=== PATIENT | male | born 1960 | race Caucasian/White ===

== ENCOUNTER 2018-10-15 23:54 | Emergency (ER) | payer SELFPAY ==
[2018-10-16] MEDS ORDERED: methylPREDNIS SUCC 125 MG/2ML IVP ONE
[2018-10-16] MEDS ORDERED: NITROGLYCERIN OINT 1 GM PKT TP ONE (00:05)
[2018-10-16] MEDS ORDERED: ONDANSETRON 4 MG/2 ML VIAL IVP ONE ×2 (00:05→00:40)
[2018-10-16] MEDS ORDERED: ASPIRIN 81 MG CHEW PO ONE (00:05)
--- NOTE | 2018-10-16 00:10 | ER Report ---
History and Physical Time Seen By MD: 23:57 Hx. of Stated Complaint: IN BED AT 10PM, WOKE UP TO EXTREME CHEST PAIN AND DIFF BREATHING "DOESN'T FEEL RIGHT" HPI/ROS CHIEF COMPLAINT: Difficulty breathing HISTORY OF PRESENT ILLNESS: 57-year-old male presents to the ER with shortness of breath, difficulty breathing since 10 PM. Patient's been having cold symptoms and a cough for several days. He does have a history of COPD diagnosed back in [place]. He is new to [facility] over the last several weeks. Patient notes some chest tightness. He's having grunting respirations and pain with breathing. She denies cardiac history. Patient denies leg swelling. Patient denies GERD symptoms. REVIEW OF SYSTEMS: Respiratory: As above Cardiovascular: As above Gastrointestinal: No vomiting, no abdominal pain. Musculoskeletal: No back pain. Allergies: Coded Allergies: No Known Drug Allergies (Unverified , 10/16/18) Home Meds Active Scripts Albuterol Sulfate 90 Mcg/Act (PROAIR HFA 90 MCG/ACT) 8.5 Gm Hfa.aer.ad, 2 PUFF IH Q4-6H PRN for difficulty breathing, #1 INHALER 4 Refills Prov:TAMY MOMIN DO 10/16/18 Amlodipine Besylate (AMLODIPINE BESYLATE) 5 Mg Tablet, 2 TAB PO QDAY, #30 TAB 8 Refills Prov:TAMY MOMIN DO 10/16/18 Amlodipine Besylate (AMLODIPINE BESYLATE) 5 Mg Tablet, 1 TAB PO QDAY for Blood Pressure, #30 TAB Prov:TAMY MOMIN DO 10/16/18 Prednisone 10 Mg Tab (PREDNISONE 10 MG TAB) 10 Mg Tablet, 10 MG PO QDAY for reduce lung inflammation, #9 TAB 2 by mouth daily for 3 days then 1 by mouth daily for 3 days Prov:TAMY MOMIN DO 10/16/18 Past Medical/Surgical History COPD Constitutional Vital Sign - Last 24 Hours 10/15/18 10/15/18 10/15/18 10/16/18 23:54 23:57 23:58 00:00 Temp 97.6 Pulse ??? 80 Resp 30 B/P (MAP) 181/118 181/118 (139) 153/137 (142) Pulse Ox 94 O2 Delivery Room Air 10/16/18 10/16/18 10/16/18 10/16/18 00:05 00:05 00:09 00:10 Pulse 76 81 75 Resp 20 26 20 Pulse Ox 96 94 O2 Delivery Room Air 10/16/18 10/16/18 10/16/18 10/16/18 00:12 00:15 00:30 00:39 Pulse 77 Resp 18 B/P (MAP) 143/93 (110) 148/112 (124) 161/98 (119) Pulse Ox 94 10/16/18 10/16/18 10/16/18 10/16/18 00:45 00:45 00:54 01:00 Pulse 76 Resp 8 B/P (MAP) 143/95 (111) 150/90 (110) Pulse Ox 93 O2 Flow Rate 2.0 10/16/18 10/16/18 10/16/18 10/16/18 01:09 01:15 01:20 01:20 Pulse 76 77 73 Resp 8 17 15 B/P (MAP) 147/94 (111) Pulse Ox 93 94 10/16/18 10/16/18 10/16/18 10/16/18 01:20 01:23 01:30 01:35 Pulse 73 80 Resp 16 18 B/P (MAP) 135/82 (99) Pulse Ox 94 94 O2 Delivery Nasal Cannula O2 Flow Rate 2.0 10/16/18 10/16/18 10/16/18 10/16/18 01:37 01:42 01:45 01:57 Pulse 80 84 Resp 20 17 B/P (MAP) 135/88 (104) 139/85 (103) Pulse Ox 94 95 10/16/18 10/16/18 10/16/18 10/16/18 02:00 02:00 02:00 02:10 Pulse 77 76 Resp 16 16 B/P (MAP) 142/88 (106) Pulse Ox 96 O2 Delivery Nasal Cannula O2 Flow Rate 2.0 10/16/18 10/16/18 02:12 02:15 Pulse 79 Resp 20 B/P (MAP) 139/87 (104) Pulse Ox 94 Physical Exam Vital signs stable, grossly elevated blood pressure with systolic of 119. Pulse ox stable on room air, increased work of breathing noted, moderate distress, skin slightly pale but dry General Appearance: The patient is alert, has no immediate need for airway protection and no current signs of toxicity. Moderate respiratory distress HEENT: Pupils equal and round no injection. TMs normal, oropharynx without redn ess Respiratory: Chest is non tender, gross expiratory wheezing throughout lung villar Cardiac: regular rate and rhythm Gastrointestinal: Abdomen is soft and non tender, no masses, bowel sounds normal . Musculoskeletal: Neck: Neck is supple and non tender. Extremities have full range of motion and are non tender. No edema, no calf tenderness Skin: No rashes or lesions. DIFFERENTIAL DIAGNOSIS: After history and physical exam differential diagnosis was considered for shortness of breath including but not limited to pulmonary infectious process, COPD, asthma, pulmonary embolus and congestive heart failure. Medical Decision Making Data Points Result Diagram: 10/16/18 0000 10/16/18 0000 Laboratory Hematology Test 10/16/18 00:00 Red Blood Count 4.89 M/uL (4.00-5.60) Mean Corpuscular Volume 93.3 fL (80.0-96.0) Mean Corpuscular Hemoglobin 32.3 pg (26.0-33.0) Mean Corpuscular Hemoglobin Concent 34.6 g/dL (32.0-36.0) Red Cell Distribution Width 14.8 % (11.5-14.5) Mean Platelet Volume 9.1 fL (7.2-11.1) Neutrophils (%) (Auto) 59.0 % (39.4-72.5) Lymphocytes (%) (Auto) 31.1 % (17.6-49.6) Monocytes (%) (Auto) 7.7 % (4.1-12.4) Eosinophils (%) (Auto) 1.5 % (0.4-6.7) Basophils (%) (Auto) 0.7 % (0.3-1.4) Nucleated RBC Relative Count (auto) 0.1 /100WBC Neutrophils # (Auto) 5.9 K/uL (2.0-7.4) Lymphocytes # (Auto) 3.1 K/uL (1.3-3.6) Monocytes # (Auto) 0.8 K/uL (0.3-1.0) Eosinophils # (Auto) 0.2 K/uL (0.0-0.5) Basophils # (Auto) 0.1 K/uL (0.0-0.1) Nucleated RBC Absolute Count (auto) 0.01 K/uL D-Dimer Quantitative (PE/DVT) 0.34 ug/ml (0-0.50) Sodium Level 140 mmol/L (137-145) Potassium Level 3.2 mmol/L (3.5-5.0) Chloride Level 109 mmol/L (98-107) Carbon Dioxide Level 24 mmol/L (22-30) Blood Urea Nitrogen 15 mg/dl (9-21) Creatinine 1.10 mg/dl (0.66-1.25) Glomerular Filtration Rate Calc > 60.0 Random Glucose 99 mg/dl (75-110) Calcium Level 8.7 mg/dl (8.4-10.2) Total Bilirubin 0.6 mg/dl (0.2-1.3) Aspartate Amino Transf (AST/SGOT) 39 U/L (0-35) Alanine Aminotransferase (ALT/SGPT) 23 U/L (0-56) Alkaline Phosphatase 111 U/L (0-126) Troponin I < 0.012 ng/ml B-Type Natriuretic Peptide 61 pg/ml (0-100) Total Protein 7.0 g/dl (6.3-8.2) Albumin 4.1 g/dl (3.5-5.0) Amylase Level 41 U/L (0-110) Lipase 58 U/L (23-300) Chemistry Test 10/16/18 00:00 White Blood Count 10.0 k/uL (4.5-11.0) Red Blood Count 4.89 M/uL (4.00-5.60) Hemoglobin 15.8 g/dL (14.0-18.0) Hematocrit 45.6 % (42.0-52.0) Mean Corpuscular Volume 93.3 fL (80.0-96.0) Mean Corpuscular Hemoglobin 32.3 pg (26.0-33.0) Mean Corpuscular Hemoglobin Concent 34.6 g/dL (32.0-36.0) Red Cell Distribution Width 14.8 % (11.5-14.5) Platelet Count 272 K/uL (150-450) Mean Platelet Volume 9.1 fL (7.2-11.1) Neutrophils (%) (Auto) 59.0 % (39.4-72.5) Lymphocytes (%) (Auto) 31.1 % (17.6-49.6) Monocytes (%) (Auto) 7.7 % (4.1-12.4) Eosinophils (%) (Auto) 1.5 % (0.4-6.7) Basophils (%) (Auto) 0.7 % (0.3-1.4) Nucleated RBC Relative Count (auto) 0.1 /100WBC Neutrophils # (Auto) 5.9 K/uL (2.0-7.4) Lymphocytes # (Auto) 3.1 K/uL (1.3-3.6) Monocytes # (Auto) 0.8 K/uL (0.3-1.0) Eosinophils # (Auto) 0.2 K/uL (0.0-0.5) Basophils # (Auto) 0.1 K/uL (0.0-0.1) Nucleated RBC Absolute Count (auto) 0.01 K/uL D-Dimer Quantitative (PE/DVT) 0.34 ug/ml (0-0.50) Glomerular Filtration Rate Calc > 60.0 Calcium Level 8.7 mg/dl (8.4-10.2) Total Bilirubin 0.6 mg/dl (0.2-1.3) Aspartate Amino Transf (AST/SGOT) 39 U/L (0-35) Alanine Aminotransferase (ALT/SGPT) 23 U/L (0-56) Alkaline Phosphatase 111 U/L (0-126) Troponin I < 0.012 ng/ml B-Type Natriuretic Peptide 61 pg/ml (0-100) Total Protein 7.0 g/dl (6.3-8.2) Albumin 4.1 g/dl (3.5-5.0) Amylase Level 41 U/L (0-110) Lipase 58 U/L (23-300) Coagulation Test 10/16/18 00:00 D-Dimer Quantitative (PE/DVT) 0.34 ug/ml EKG/Imaging EKG Interpretation 12 lead EK Rhythm: normal sinus rhythm [place]: normal QRS: normal ST segments: normal, no evidence of ischemia or dysrhythmia, no old EKGs for comparison Imaging X-ray: Single view portable chest x-ray was obtained. I viewed the images myself on the PACS system. My interpretation of the images is: No infiltrate, no effusion, normal mediastinum, changes consistent with COPD. The radiologist interpretation had no clinically significant variation from this interpretation. ED Course/Re-evaluation Clinical Indication for ER IV: Hydration, IV Access ED Course Patient was admitted to an examination room. H&P was done. The differential diagnoses was considered. Patient with shortness of breath. His vital signs are stable but serious work of breathing is noted. He is using accessory muscles. He is not diaphoretic. His EKG is normal. Diagnostic studies are ordered. Patient's treated with series of DuoNeb's Solu-Medrol IV. His troponin and d-dimer and BNP all return normal. Patient's blood pressure is quite high. He is treated with nitroglycerin paste 1 inch. After he is stabilized. He is treated with Norvasc 5 mg by mouth. And the Nitropaste is removed. He is monitored for 45 minutes without exacerbation of his symptoms. He is discharged home with an albuterol inhaler. He's been using his Flovent inhaler as a rescue inhaler. Patient was placed on prednisone. He is given a prescription for Norvasc. Patient advised to follow-up with primary care. Upon returning home. Decision to Disposition Date: Oct 16, 2018 Decision to Disposition Time: 02:23 Depart Departure Latest Vital Signs Vital Signs Date Time Temp Pulse Resp B/P (MAP) Pulse Ox O2 Delivery O2 Flow Rate FiO2 10/16/18 02:15 139/87 (104) 10/16/18 02:12 79 20 94 10/16/18 02:00 Nasal Cannula 2.0 10/15/18 23:57 97.6 Impression: Primary Impression: COPD exacerbation Additional Impressions: Hypertension Back pain Chest pain Condition: Improved Disposition: HOME OR SELF-CARE New Scripts Albuterol Sulfate 90 Mcg/Act (PROAIR HFA 90 MCG/ACT) 8.5 Gm Hfa.aer.ad 2 PUFF IH Q4-6H PRN for difficulty breathing, #1 INHALER 4 Refills Prov: TAMY MOMIN DO 10/16/18 Amlodipine Besylate (AMLODIPINE BESYLATE) 5 Mg Tablet 2 TAB PO QDAY, #30 TAB 8 Refills Prov: TAMY MOMIN DO 10/16/18 Amlodipine Besylate (AMLODIPINE BESYLATE) 5 Mg Tablet 1 TAB PO QDAY for Blood Pressure, #30 TAB Prov: MERRILLTAMY Kaitlynn DO 10/16/18 Prednisone 10 Mg Tab (PREDNISONE 10 MG TAB) 10 Mg Tablet 10 MG PO QDAY for reduce lung inflammation, #9 TAB 2 by mouth daily for 3 days then 1 by mouth daily for 3 days Prov: TAMY MOMIN DO 10/16/18 Patient Instructions: COPD (Chronic Obstructive Pulmonary Disease) (ED), Hypertension (ED) Additional Instructions: Take prednisone until gone Continue amlodipine 5 mg per day for blood pressure control Follow-up with primary care. Upon returning home Problem Qualifiers Additional Impressions: Hypertension Hypertension type: essential hypertension Qualified Codes: I10 - Essential (primary) hypertension Back pain Back pain location: thoracic back pain Chronicity: acute Back pain laterality: unspecified Qualified Codes: M54.6 - Pain in thoracic spine Chest pain Chest pain type: unspecified Qualified Codes: R07.9 - Chest pain, unspecified TAMY MOMIN DO Oct 16, 2018 00:10
--- NOTE | 2018-10-16 00:19 | EKG ---
FACILITY: [facility] - [place] PATIENT NAME: SUSAN ACUÑA : [id number] MR: [id number] V: [id number] EXAM DATE: ORDERING PHYSICIAN: TAMY MOMIN TECHNOLOGIST: GABE Test Reason : DYSPNEA Blood Pressure : / mmHG Vent. Rate : 077 BPM Atrial Rate : 077 BPM P-R Int : 142 ms QRS Dur : 098 ms QT Int : 386 ms P-R-T Axes : 064 085 076 degrees QTc Int : 436 ms Normal sinus rhythm Normal ECG No previous ECGs available Confirmed by Epi Mednoza ([id number]) on 10/16/2018 7:55:43 AM Referred By: Confirmed By:Epi Dahl
[2018-10-16 00:22] LABS: PLATELET COUNT, AUTOMATED 272 K/uL (150-450)
--- NOTE | 2018-10-16 00:32 | RADIOLOGY IMAGING REPORT ---
FACILITY: [facility] - [place] PATIENT NAME: Layo Keys : 1960 MR: [id number] V: [id number] EXAM DATE: ORDERING PHYSICIAN: TAMY MOMIN TECHNOLOGIST: Location: [facility] - [place] Patient: Layo Keys : 1960 Visit/Account:[id number] Date of Sevice: 10/15/2018 AP CHEST 10/15/2018 11:57 PM. INDICATION: Respiratory distress. COMPARISON: None. FINDINGS: Lungs are well-expanded. There is no consolidation. No pleural effusion or pneumothorax. Heart size i s normal. IMPRESSION: No acute abnormality. Report Dictated By: Casey West MD at 10/16/2018 12:27 AM Report E-Signed By: Casey West MD at 10/16/2018 12:28 AM WSN:[id number]
[2018-10-16] MEDS ORDERED: fentaNYL CITR 100 MCG/2 ML AMP IVP ONE (00:45)
[2018-10-16] MEDS ORDERED: amLODIPine BESYL(*) 5 MG TAB PO ONE (01:10)
[2018-10-16] MEDS ORDERED: PRED-1 PO (01:16)
[2018-10-16] MEDS ORDERED: AMLO-125 PO (01:16)
[2018-10-16] MEDS ORDERED: ALBUTEROL/IPRATROPIUM 3 ML NEB NEB ONE ×3 (01:20→01:55)
[2018-10-16] MEDS ORDERED: ALBU8.5H IH (02:00)
[2018-10-16] MEDS ORDERED: ALBUTEROL 8 GM INHALER INH ONE (02:00)
[2018-10-16 02:15] VITALS: BP 139/87
== END 2018-10-16 02:29 | disposition home or self-care (01) ==
LOC: ER 10-16 00:14
DX: J44.1 Chronic obstructive pulmonary disease with (acute) exacerbation (principal); I10 Essential (primary) hypertension; R07.9 Chest pain, unspecified; M54.6 Pain in thoracic spine
CPT/HCPCS: 71045; 82150; 83690; 83880; 84484; 85025; 85379; 93005; 94640; 96374; 96375; 96376; 99284; J2405; J2930; J3010; J7620; 82040; 82247; 82310; 82374; 82435; 82565; 82947; 84075; 84132; 84155; 84295; 84450; 84460; 84520